=== PATIENT | male | born 1995 | race African-American/Black ===

== ENCOUNTER 2019-10-13 19:26 | Emergency (ER) | payer OTHER ==
[~2019-10-13] VITALS: Ht 182.9 cm; Wt 113.4 kg
[2019-10-13 19:33] VITALS: BP 142/80
[2019-10-13] MEDS ORDERED: TDAP [DIPH/PERTUSSIS/TET] 0.5 ML VIAL IM ONE ×2 (19:44→20:00)
== END 2019-10-13 20:25 ==
LOC: ER 19:29
DX: S30.811A Abrasion of abdominal wall, initial encounter (principal); S50.311A Abrasion of right elbow, initial encounter; Z23 Encounter for immunization; W18.39XA Other fall on same level, initial encounter; Y93.02 Activity, running; Y92.89 Other specified places as the place of occurrence of the external cause; Y99.8 Other external cause status
CPT/HCPCS: 90471; 90715; 99283; A6403